=== PATIENT | male | born 1965 | race Caucasian/White ===

== ENCOUNTER 2017-06-13 16:56 | Emergency (ER) | payer BC ==
[~2017-06-13] VITALS: Ht 180.3 cm; Wt 96.9 kg
[~2017-06-13 16:56] MED LIST changes: -FLM4 PO; -LSN40 PO; -TRIM100T20 PO; -VITBC PO; -XRL10 PO
[2017-06-13 17:05] VITALS: TEMP 36.8
--- NOTE | 2017-06-13 17:18 | EMERGENCY ROOM VISIT NOTE ---
History Report prepared by Rachel: Kush Medina Under the Supervision of: Dr. Liborio Rosas M.D. First contact with patient: 17:09 Chief Complaint: ABNORMAL DIAGNOSTIC TESTING Stated Complaint: ABNORMAL ULTRASOUND, DVT IN LEFT LEG History of Present Illness The patient is a 52 year old male who presents to the Emergency Room with complaints of persistent lower left leg pain that started a week ago. He says that he had 4 surgeries 10 years ago for a torn Achilles, and ever since has had this lump on his left lower leg. However, last week, the patient states that he started having soreness around the area with increased swelling. He saw his primary care physician, and was sent to have an ultrasound, which was abnormal and revealed a DVT. The patient was then sent here for further evaluation and treatment. The patient says that he is generally healthy, and works out daily. He denies any chest pain, shortness of breath, or abdominal pain. Source of History: patient Onset: A week ago Position: leg (left) Timing: other (persistent) Associated Symptoms: No chest pain, No SOB, No abdominal pain Note: Associated symptoms: Left lower leg swelling. Abnormal ultrasound. Review of Systems See HPI for pertinent positives & negatives. A total of 10 systems reviewed and were otherwise negative. Past Medical & Surgical Medical Problems: (1) Acid reflux (2) Enlarged prostate (3) HTN (hypertension) Surgical Problems: (1) Achilles rupture Family History Cancer Diabetes mellitus Heart disease Hypertension Social History Smoking Status: Former Smoker Smokeless Tobacco Use: No Alcohol Use: occasionally Marital Status: Housing Status: lives with family Occupation Status: employed Current/Historical Medications Scheduled [place]-3 Fatty Acids (Fish Oil), 1 CAP PO QAM Pantoprazole Sodium (Protonix), 40 MG PO QAM Rivaroxaban (Xarelto), 15 MG PO BID Allergies Coded Allergies: No Known Allergies (Unverified , 08/15/15) Physical Exam Vital Signs Date Time Temp Pulse Resp B/P (MAP) Pulse Ox O2 Delivery O2 Flow Rate FiO2 06/13/17 17:37 97 Room Air 06/13/17 17:05 36.8 70 18 166/102 100 Physical Exam GENERAL: Patient is a healthy-appearing well-nourished 52 year old male HEAD: Normocephalic atraumatic EYES: Ocular movements intact pupils equal and react to light OROPHARYNX mucous membranes are moist no exudates present no erythema or edema present NECK: Supple no nuchal rigidity CHEST: Good equal expansion LUNGS: Clear and equal to auscultation CARDIAC: Normal S1 and S2 ABDOMEN: Soft nontender no guarding BACK: No CVA tenderness EXTREMITIES: Superficial phlebitis to medial side of left leg, and left calf is swollen. NEURO: Patient is following commands and answering questions appropriately. Alert and oriented x3 Cranial Nerves 2-12 grossly intact Medical Decision & Procedures Laboratory Results Test 06/13/17 17:09 Labs reviewed by ED physician. ED Course 1712: Past medical records reviewed. The patient was evaluated in room C11B. A complete history and physical examination was performed. 1735: Upon reexamination the patient is resting comfortably. I discussed results and treatment plan with the patient. he verbalizes agreement and understanding. The patient is ready for discharge. 1745: Ordered Xarelto Tab 15 mg PO. Medical Decision Differential diagnosis: Etiologies such as DVT, musculoskeletal, infection, joint effusion, trauma, lymphedema, idiopathic, CHF, as well as others were entertained.. Medication Reconcilliation Current Medication List: was personally reviewed by me Blood Pressure Screening Patient's blood pressure: Elevated blood pressure Blood pressure disposition: Referred to PCP Impression Primary Impression: DVT (deep venous thrombosis) Scribe Attestation The scribe's documentation has been prepared under my direction and personally reviewed by me in its entirety. I confirm that the note above accurately reflects all work, treatment, procedures, and medical decision making performed by me. Departure Information Dispostion Home / Self-Care Prescriptions Rivaroxaban (Xarelto) 10 Mg Tab 15 MG PO BID for 21 Days, #63 TAB Prov: Liborio Rosas MD 06/13/17 Referrals Jeremy Bran M.D. (PCP) Patient Instructions DVT Dc, Hypertension Dc, My [facility], Rivaroxaban oral tablets Additional Instructions Follow up with Dr Bran's office within one week You were found to have an elevated blood pressure today (>120 sytolic or >90 diastolic). Per medicare guidelines, you need to follow up with this blood pressure screening with your Primary Care Physician (PCP). For a new PCP call [phone]. You have been examined and treated today on an emergency basis only. This is not a substitute for, or an effort to provide, complete comprehensive medical care. It is impossible to recognize and treat all injuries or illnesses in a single emergency department visit. It is therefore important that you follow up closely with Dr Bran. Call as soon as possible for an appointment. Thank you for your time and consideration. I look forward to speaking with you again soon. Please don't hesitate to call us if you have any questions. Problem Qualifiers Primary Impression: DVT (deep venous thrombosis) DVT location: lower extremity Affected thrombotic vein of extremity: unspecified vein of extremity Chronicity: acute Laterality: left Qualified Codes: I82.402 - Acute embolism and thrombosis of unspecified deep veins of left lower extremity
[2017-06-13] MEDS ORDERED: RIVAROXABAN 20 MG TAB PO STA (17:29)
[2017-06-13] MEDS ORDERED: XRL10 PO (17:33)
[2017-06-13 17:37] VITALS: O2SAT 97; Ht 180.3 cm; Wt 96.9 kg
[2017-06-13] MEDS ORDERED: TRIM100T20 PO (17:40)
[2017-06-13] MEDS ORDERED: LSN40 PO (17:40)
[2017-06-13] MEDS ORDERED: RIVAROXABAN TAB 15 MG TAB PO ONE (17:45)
[2017-06-13 17:49] LABS: BASO % 0.4 %; BASO ABS # 0.03 K/uL (0-0.2); COMPLETE YES; EOS % 1.1 %; LYMPH ABS # 1.73 K/uL (1.2-3.4); MEAN CELL VOLUME 88.5 fL (80-100); MEAN CORPUSCULAR HEMOGLOBIN 30.3 pg (25-34); MEAN CORPUSCULAR HGB CONC 34.3 g/dl (32-36); MEAN PLATELET VOLUME 9.6 fL (7.4-10.4); MONO % 11.5 %; PLATELET COUNT 236 K/uL (130-400); RED BLOOD COUNT 4.52 M/uL (4.7-6.1); WHITE BLOOD COUNT 7.88 K/uL (4.8-10.8)
[2017-06-13 18:03] LABS: PARTIAL THROMBOPLASTIN RATIO 0.9; PROTHROMBIN TIME (PATIENT) 10.5 SECONDS (9.0-12.0)
[2017-06-13 18:07] LABS: BUN/CREATININE RATIO 14.1 (10-20); CREATININE 1.3 mg/dl (0.60-1.40); POTASSIUM 3.7 mmol/L (3.5-5.1)
[2017-06-13 18:10] LABS: ALB/GLOB RATIO 1.1 (0.9-2)
[2017-06-13 18:15] VITALS: BP 139/94; PULSE 68; O2SAT 98
[2017-06-24 12:52] LABS: ANTITHROMBINIII ACTIVITY** 103 % activity (80-120); B2 GLYCOPROTEIN IGA <9 SAU (<=20); B2 GLYCOPROTEIN IGG <9 SGU (<=20); B2 GLYCOPROTEIN IGM <9 SMU (<=20); LUPUS ANTICOAGULANT** TC36573X Negative (Negative); PROTEIN C ACTIVITY** TC 1777X 113 % (70-180)
== END 2017-06-13 18:21 | disposition home or self-care (01) ==
LOC: C.EDB 16:58 → C.EDC 18:21
DX: I82.4Z2 Acute embolism and thrombosis of unspecified deep veins of left distal lower extremity (principal); K21.9 Gastro-esophageal reflux disease without esophagitis; N40.0 Benign prostatic hyperplasia without lower urinary tract symptoms; I10 Essential (primary) hypertension; Z87.891 Personal history of nicotine dependence; Z83.3 Family history of diabetes mellitus; Z82.49 Family history of ischemic heart disease and other diseases of the circulatory system

== ENCOUNTER → 2017-06-13 | Outpatient (CLI) | payer BC ==
[~2017-06-13] MED LIST: FLM4 PO; LSN40 PO; OMEGCAP2 PO; PANT40TA PO; TRIM100T20 PO; VITBC PO; XRL10 PO
--- NOTE | 2017-06-13 16:18 | DIAGNOSTIC IMAGING REPORT ---
ADDENDUM All references to the right leg on the original report refers exclusively to the left leg. Electronically signed by: Ronnie Vazquez M.D. 06/23/2017 9:55 AM Dictated Date/Time: 06/23/2017 9:55 AM ORIGINAL REPORT LEFT VENOUS DOPP LOWER EXT UNILAT CLINICAL HISTORY: PAIN AND SWELLING IN LEFT LEG; R/O DVT *STAT pain. Edema. TECHNIQUE: Venous Doppler COMPARISON STUDY: None FINDINGS: Study is positive for deep venous thrombosis involving the posterior tibial vein in the right. All remaining venous structures the right leg are unremarkable. There is a superficial thrombus within a superficial vessel medial left calf. The deep venous structures left leg are unremarkable. IMPRESSION: 1. Focal deep venous thrombosis right posterior tibial vein inferior to the knee 2. Focal superficial thrombophlebitis left calf The above report was generated using voice recognition software. It may contain grammatical, syntax or spelling errors. Electronically signed by: Ronnie Vazquez M.D. 06/13/2017 4:17 PM Dictated Date/Time: 06/13/2017 4:16 PM
== END | disposition home or self-care (01) ==
LOC: C.ULTR 15:17
PROVIDERS: ATTEND Student in an Organized Health Care Education/Training Program
DX: M79.89 Other specified soft tissue disorders (principal); I82.442 Acute embolism and thrombosis of left tibial vein; I80.02 Phlebitis and thrombophlebitis of superficial vessels of left lower extremity

== ENCOUNTER → 2017-06-22 | Outpatient (CLI) | payer BC ==
[~2017-06-22] MED LIST changes: +FLM4 PO; +LSN40 PO; -OMEGCAP2 PO; +TRIM100T20 PO; +VITBC PO; +XRL10 PO
--- NOTE | 2017-06-22 09:27 | DIAGNOSTIC IMAGING REPORT ---
LEFT TIBIA/FIBULA 2 VIEWS ROUTINE CLINICAL HISTORY: Lower leg mass COMPARISON: None. DISCUSSION: No fractures or dislocations are visualized. There are no erosive or destructive changes. There is nonspecific focal soft tissue nodularity located medially at the junction of the middle distal one third of the lower leg. IMPRESSION: 1. No bony abnormalities identified 2. Nonspecific soft tissue nodularity involving the medial soft tissues. Electronically signed by: Jorge Shelley M.D. 06/22/2017 9:26 AM Dictated Date/Time: 06/22/2017 9:25 AM
== END | disposition home or self-care (01) ==
LOC: C.RAD 09:04
PROVIDERS: ATTEND Family Medicine
DX: R22.40 Localized swelling, mass and lump, unspecified lower limb (principal)

== ENCOUNTER 2017-07-01 18:32 | Emergency (ER) | payer BC ==
[~2017-07-01] VITALS: Ht 180.3 cm; Wt 98.4 kg
[~2017-07-01 18:32] MED LIST changes: -FLM4 PO; -VITBC PO
[2017-07-01 18:37] VITALS: TEMP 36.6; Ht 180.3 cm; Wt 98.4 kg
[2017-07-01 18:57] VITALS: O2SAT 97
[2017-07-01] MEDS ORDERED: RIVAROXABAN TAB 15 MG TAB PO STA (19:04)
[2017-07-01 19:12] LABS: BASO % 0.3 %; BASO ABS # 0.02 K/uL (0-0.2); COMPLETE YES; EOS % 1.6 %; HEMATOCRIT 39.3 % (42-52); IG% 0.3 %; LYMPH % 28.9 %; LYMPH ABS # 2.01 K/uL (1.2-3.4); MEAN CELL VOLUME 88.5 fL (80-100); MEAN CORPUSCULAR HEMOGLOBIN 29.7 pg (25-34); MEAN CORPUSCULAR HGB CONC 33.6 g/dl (32-36); MEAN PLATELET VOLUME 9.3 fL (7.4-10.4); MONO % 11.9 %; PLATELET COUNT 221 K/uL (130-400); RED BLOOD COUNT 4.44 M/uL (4.7-6.1); WHITE BLOOD COUNT 6.96 K/uL (4.8-10.8)
[2017-07-01 19:22] LABS: PROTHROMBIN TIME (PATIENT) 10.7 SECONDS (9.0-12.0)
--- NOTE | 2017-07-01 19:48 | DIAGNOSTIC IMAGING REPORT ---
CHEST ONE VIEW PORTABLE CLINICAL HISTORY: 52 years-old Male presenting with chest pressure. TECHNIQUE: Portable upright AP view of the chest was obtained. COMPARISON: 12/09/2009. FINDINGS: Cardiac silhouette mildly enlarged. Double density posterior to the right heart border may suggest left atrial enlargement. Mild prominence of pulmonary vasculature. Lungs and pleural spaces clear. Osseous structures normal. Upper abdomen normal. IMPRESSION: 1. Allowing for portable technique, apparent interval development of mild cardiomegaly with possible left atrial enlargement and pulmonary vascular prominence. No evidence of pulmonary edema or focal infiltrate. Electronically signed by: Marcos Ruiz M.D. 07/01/2017 7:46 PM Dictated Date/Time: 07/01/2017 7:44 PM
[2017-07-01] MEDS ORDERED: FLM4 PO (20:07)
[2017-07-01 20:08] LABS: LYME DISEASE AB IGG NEG (NEG); LYME DISEASE AB IGM NEG (NEG)
[2017-07-01] MEDS ORDERED: VITBC PO (20:08)
[2017-07-01 20:24] LABS: MANUAL MICROSCOPIC REQUIRED? NO; REVIEW REQ? NO; URINE APPEARANCE CLEAR (CLEAR); URINE BILIRUBIN NEG (NEG); URINE COLOR YELLOW; URINE NITRITE NEG (NEG); URINE SPECIFIC GRAVITY 1.025 (1.000-1.030); UROBILINOGEN NEG (NEG); ZZUR CULT IF INDIC CLEAN CATCH NO
[2017-07-01 20:45] LABS: BUN/CREATININE RATIO 10.9 (10-20); CALCIUM 8.9 mg/dl (8.5-10.1); CREATININE 1.2 mg/dl (0.60-1.40); MAGNESIUM 2.1 mg/dl (1.8-2.4); POTASSIUM 3.7 mmol/L (3.5-5.1)
[2017-07-01 20:56] LABS: ALB/GLOB RATIO 1.1 (0.9-2); THYROID STIMULATING HORMONE 2.12 uIu/ml (0.300-4.500)
[2017-07-01] MEDS ORDERED: OPTIRAY 320 IV PRN (21:15)
--- NOTE | 2017-07-01 22:02 | DIAGNOSTIC IMAGING REPORT ---
(CHEST FOR PE) ANGIO WITH CT DOSE: 523.34 mGy.cm HISTORY: 52 years-old Male presents with acute chest pain. TECHNIQUE: Multiple CTA images of the chest were obtained after the intravenous administration of 93 ml Optiray 320. Coronal and sagittal MIPS were obtained from the axial data set and were submitted for review. A dose lowering technique was utilized adhering to the principles of ALARA. COMPARISON: Portable chest radiograph 07/01/2017. FINDINGS: CTA: There is adequate opacification of the pulmonary arteries to the level of the subsegmental branches without convincing evidence of acute pulmonary embolism. Thoracic aorta is not opacified secondary to contrast bolus timing, however appears to be within normal limits.Heart size is normal. Coronary arterial calcifications are noted. There is reflux of contrast into the hepatic veins, likely secondary to technique. CT CHEST: No dominant thyroid nodule is seen. No pathologically adenopathy by CT size criteria. Subsegmental dependent atelectasis is present within the bilateral lungs. No pneumothorax, pleural effusion or focal airspace consolidation. Mild mosaic attenuation suggests some air trapping. Central airways are patent. Imaged upper abdominal structures are within normal limits. Transverse colon diverticula are noted. Degenerative changes are seen throughout the spine, [id number]. IMPRESSION: No acute cardiopulmonary process, specifically no evidence of pulmonary thromboembolic disease. Thoracic aorta is not well opacified, however also demonstrates no acute disease. The above report was generated using voice recognition software. It may contain grammatical, syntax or spelling errors. Electronically signed by: Maco Chand M.D. 07/01/2017 10:00 PM Dictated Date/Time: 07/01/2017 9:56 PM
[2017-07-01] MEDS ORDERED: GI COCKTAIL PO STA (22:15)
[2017-07-01] MEDS ORDERED: ALUMINUM/MAGNESIUM SUSP 30 ML UDC ONE (22:20)
[2017-07-01] MEDS ORDERED: LIDOCAINE HCL 2% VISC SOLN 20 ML UDC ONE (22:21)
--- NOTE | 2017-07-01 22:49 | EMERGENCY ROOM VISIT NOTE ---
History First contact with patient: 18:40 Chief Complaint: CHEST PAIN Stated Complaint: HAS BLOOD CLOT, NEW CHEST TIGHNESS Nursing Triage Summary: Pt reports substernal chest tightness that started today. Pt states "I looked it up on the computer and because of my DVT, I am concerned about a blood clot in my lungs". Dx with DVT recently. Currently on Xaralto. Denies SOB. History of Present Illness The patient is a 52 year old male who presents to the Emergency Room via private vehicle accompanied by With complaints of "has blood clots, new chest tightness". The patient states that today he went to work around 5:30 AM, and unfortunately missed his morning dose of Xarelto. He may have also missed one other dose throughout his course since his DVT diagnosis earlier in the month. The patient states that around 7 8 AM he developed substernal chest pressure/heaviness. He states the heaviness is constant. He has not taken anything for the symptoms. He denies any significant past medical history, but admits to hypertension, as well as borderline high cholesterol. He states that the DVT diagnosis was June 13 in the left leg. He has been taking Xarelto 15 mg twice a day for this. He denies any nausea, vomiting, diarrhea, constipation, shortness of breath, radiation of symptoms to left arm, jaw, back, chest pain, numbness or tinging, headache, weakness, fatigue, fevers, chills, night sweats. He states that he has a family history of heart issues. Review of Systems A complete 10-point Review of Systems was discussed with the patient, with pertinent positives and negatives listed in the History of Present Illness. All remaining Review of Systems questions can be considered negative unless otherwise specified. Past Medical/Surgical History Medical Problems: (1) Acid reflux (2) Enlarged prostate (3) HTN (hypertension) Surgical Problems: (1) Achilles rupture Family History Cancer Diabetes mellitus Heart disease Hypertension Social History Smoking Status: Never Smoker Alcohol Use: occasionally Marital Status: Housing Status: lives with family Occupation Status: employed Current/Historical Medications Scheduled Lisinopril (Lisinopril), 40 MG PO DAILY Pantoprazole Sodium (Protonix), 40 MG PO QAM Rivaroxaban (Xarelto), 15 MG PO BID Tamsulosin HCl (Tamsulosin HCl), 0.4 MG PO QPM Vitamin B Complex (Vitamin B Complex), 1 TAB PO DAILY Physical Exam Vital Signs Date Time Temp Pulse Resp B/P (MAP) Pulse Ox O2 Delivery O2 Flow Rate FiO2 07/01/17 22:58 63 14 141/96 95 07/01/17 22:38 07/01/17 22:25 69 16 150/99 95 Room Air 07/01/17 21:31 152/104 07/01/17 21:07 65 17 98 07/01/17 21:01 145/103 07/01/17 20:37 58 20 96 07/01/17 20:31 142/94 07/01/17 20:07 61 14 97 07/01/17 20:02 153/95 07/01/17 19:35 63 18 96 07/01/17 19:32 60 18 129/94 95 Room Air 07/01/17 19:13 59 07/01/17 18:57 97 Room Air 07/01/17 18:47 98 Room Air 07/01/17 18:37 36.6 59 18 188/115 98 Room Air Physical Exam VITAL SIGNS - Vital signs and nursing notes were reviewed. Afebrile, hypertensive at 188/115, non-tachycardic and saturating well on room air 90%. GENERAL -52-year-old male appearing his stated age who is in no acute distress. Communicates well with provider and answers questions appropriately. SKIN - Without rashes. No petechial rashes. HEAD - NC/AT. EYES - Sclera anicteric. EARS - No deformities of external structures noted on gross examination bilaterally. NOSE - Midline and without cyanosis. No epistaxis or purulent drainage noted. MOUTH/OROPHARYNX - Without perioral cyanosis. Buccal mucosa pink and moist and without leukoplakia. NECK - Neck with FROM. LUNGS - Chest wall symmetric without accessory muscle use, intercostals retractions, or central cyanosis. Normal vesicular breath sounds CTA B/L. No wheezes, rales, or rhonchi appreciated. CARDIAC - RRR with S1/S2. No murmur, rubs, or gallops appreciated. ABDOMEN - Abdominal contour without pulsations or visible masses. BS normoactive all four quadrants. No tenderness, palpable masses, hepatosplenomegaly, or ascites noted. EXTREMITIES - No clubbing or peripheral cyanosis. No pretibial edema present. +5 /5 strength noted in UE/LE bilaterally. NEUROLOGIC - Cranial nerves II through XII grossly intact. Sensory intact to light touch throughout. PSYCH - A&O. Pt is very pleasant and interacts well with examiner. Medical Decision & Procedures ER Provider Diagnostic Interpretation: CHEST ONE VIEW PORTABLE CLINICAL HISTORY: 52 years-old Male presenting with chest pressure. TECHNIQUE: Portable upright AP view of the chest was obtained. COMPARISON: 12/09/2009. FINDINGS: Cardiac silhouette mildly enlarged. Double density posterior to the right heart border may suggest left atrial enlargement. Mild prominence of pulmonary vasculature. Lungs and pleural spaces clear. Osseous structures normal. Upper abdomen normal. IMPRESSION: 1. Allowing for portable technique, apparent interval development of mild cardiomegaly with possible left atrial enlargement and pulmonary vascular prominence. No evidence of pulmonary edema or focal infiltrate. Electronically signed by: Marcos Ruiz M.D. 07/01/2017 7:46 PM Dictated Date/Time: 07/01/2017 7:44 PM. (CHEST FOR PE) ANGIO WITH CT DOSE: 523.34 mGy.cm HISTORY: 52 years-old Male presents with acute chest pain. TECHNIQUE: Multiple CTA images of the chest were obtained after the intravenous administration of 93 ml Optiray 320. Coronal and sagittal MIPS were obtained from the axial data set and were submitted for review. A dose lowering technique was utilized adhering to the principles of ALARA. COMPARISON: Portable chest radiograph 07/01/2017. FINDINGS: CTA: There is adequate opacification of the pulmonary arteries to the level of the subsegmental branches without convincing evidence of acute pulmonary embolism. Thoracic aorta is not opacified secondary to contrast bolus timing, however appears to be within normal limits.Heart size is normal. Coronary arterial calcifications are noted. There is reflux of contrast into the hepatic veins, likely secondary to technique. CT CHEST: No dominant thyroid nodule is seen. No pathologically adenopathy by CT size criteria. Subsegmental dependent atelectasis is present within the bilateral lungs. No pneumothorax, pleural effusion or focal airspace consolidation. Mild mosaic attenuation suggests some air trapping. Central airways are patent. Imaged upper abdominal structures are within normal limits. Transverse colon diverticula are noted. Degenerative changes are seen throughout the spine, [id number]. IMPRESSION: No acute cardiopulmonary process, specifically no evidence of pulmonary thromboembolic disease. Thoracic aorta is not well opacified, however also demonstrates no acute disease. The above report was generated using voice recognition software. It may contain grammatical, syntax or spelling errors. Electronically signed by: Maco Chand M.D. 07/01/2017 10:00 PM Dictated Date/Time: 07/01/2017 9:56 PM Laboratory Results 07/01/17 18:50 Red Blood Count 4.44, Mean Corpuscular Volume 88.5, Mean Corpuscular Hemoglobin 29.7, Mean Corpuscular Hemoglobin Concent 33.6, Mean Platelet Volume 9.3, Neutrophils (%) (Auto) 57.0, Lymphocytes (%) (Auto) 28.9, Monocytes (%) (Auto) 11.9, Eosinophils (%) (Auto) 1.6, Basophils (%) (Auto) 0.3, Neutrophils # (Auto ) 3.97, Lymphocytes # (Auto) 2.01, Monocytes # (Auto) 0.83, Eosinophils # (Auto ) 0.11, Basophils # (Auto) 0.02 07/01/17 18:50 Test 07/01/17 18:50 07/01/17 20:00 07/01/17 21:19 White Blood Count 6.96 K/uL (4.8-10.8) Red Blood Count 4.44 M/uL (4.7-6.1) Hemoglobin 13.2 g/dL (14.0-18.0) Hematocrit 39.3 % (42-52) Mean Corpuscular Volume 88.5 fL (80-100) Mean Corpuscular Hemoglobin 29.7 pg (25-34) Mean Corpuscular Hemoglobin Concent 33.6 g/dl (32-36) Platelet Count 221 K/uL (130-400) Mean Platelet Volume 9.3 fL (7.4-10.4) Neutrophils (%) (Auto) 57.0 % Lymphocytes (%) (Auto) 28.9 % Monocytes (%) (Auto) 11.9 % Eosinophils (%) (Auto) 1.6 % Basophils (%) (Auto) 0.3 % Neutrophils # (Auto) 3.97 K/uL (1.4-6.5) Lymphocytes # (Auto) 2.01 K/uL (1.2-3.4) Monocytes # (Auto) 0.83 K/uL (0.11-0.59) Eosinophils # (Auto) 0.11 K/uL (0-0.5) Basophils # (Auto) 0.02 K/uL (0-0.2) RDW Standard Deviation 42.7 fL (36.4-46.3) RDW Coefficient of Variation 13.2 % (11.5-14.5) Immature Granulocyte % (Auto) 0.3 % Immature Granulocyte # (Auto) 0.02 K/uL (0.00-0.02) Prothrombin Time 10.7 SECONDS (9.0-12.0) Prothromb Time International Ratio 1.0 (0.9-1.1) Activated Partial Thromboplast Time 26.5 SECONDS (21.0-31.0) Partial Thromboplastin Ratio 1.0 Anion Gap 7.0 mmol/L (3-11) Est Creatinine Clear Calc Drug Dose 85.1 ml/min Estimated GFR () 79.5 Estimated GFR (Non- 68.6 BUN/Creatinine Ratio 10.9 (10-20) Calcium Level 8.9 mg/dl (8.5-10.1) Magnesium Level 2.1 mg/dl (1.8-2.4) Total Bilirubin 0.4 mg/dl (0.2-1) Aspartate Amino Transf (AST/SGOT) 25 U/L (15-37) Alanine Aminotransferase (ALT/SGPT) 28 U/L (12-78) Alkaline Phosphatase 122 U/L (45-117) Total Protein 7.4 gm/dl (6.4-8.2) Albumin 3.8 gm/dl (3.4-5.0) Globulin 3.6 gm/dl (2.5-4.0) Albumin/Globulin Ratio 1.1 (0.9-2) Thyroid Stimulating Hormone (TSH) 2.120 uIu/ml (0.300-4.500) Lyme Disease IgG Antibody NEG (NEG) Lyme Disease IgM Antibody NEG (NEG) Urine Color YELLOW Urine Appearance CLEAR (CLEAR) Urine pH 6.0 (4.5-7.5) Urine Specific [place] 1.025 (1.000-1.030) Urine Protein NEG (NEG) Urine Glucose (UA) NEG (NEG) Urine Ketones TRACE (NEG) Urine Occult Blood NEG (NEG) Urine Nitrite NEG (NEG) Urine Bilirubin NEG (NEG) Urine Urobilinogen NEG (NEG) Urine Leukocyte Esterase NEG (NEG) Bedside Troponin I < 0.030 ng/ml (0-0.045) Medications Administered Medications (Trade) Dose Ordered Sig/Wilmer Route Start Time Stop Time Status Last Admin Dose Admin Rivaroxaban (Xarelto Tab) 15 mg NOW STAT PO 07/01/17 19:04 07/01/17 19:05 DC 07/01/17 19:32 15 MG Al Hydroxide/Mg Hydroxide (Maalox Susp) 30 ml STK-MED ONCE .ROUTE 07/01/17 22:20 07/01/17 22:21 DC 07/01/17 22:23 15 ML Lidocaine HCl (Viscous Lidocaine 2% Soln) 20 ml STK-MED ONCE .ROUTE 07/01/17 22:21 07/01/17 22:22 DC 07/01/17 22:24 10 ML Medical Decision Patient was seen and evaluated as above. After obtaining a thorough history and physical examination IV access is initiated, and the above workup was performed. Stat bedside chest x-ray was obtained and was negative for acute process. Bedside EKG reveals sinus bradycardia, no CVA change when compared to previous EKG of 01/22/2012. No ectopy or ischemic change. Troponin was negative 2. Because the patient missed his morning dose of Xarelto today I will give him today's dose which will cover his morning, but will be his late evening dose. This will be 15 mg of Xarelto. This was after discussing the case with the pharmacist. His CBC reveals no leukocytosis, CBC does reveal hemoglobin of 13.2. Slight decreased compared to previous. Coags unremarkable. Metabolic panel reveals no emergent process. Creatinine is actually improved. TSH remarkable. Troponin negative 2. Urine reveals trace ketones. Negative Lyme test. Benefits versus risk of obtaining a CT scan of the patient's chest was discussed, and although it is very unlikely that he may have a PE given the Xarelto, because he missed was believed to be 2 doses of Xarelto throughout his course I will recommend a CT scan of the patient's chest. He was in agreement. Benefits versus risks was discussed. The skin does not reveal any pulmonary emboli. This was discussed with the patient. He was given a GI cocktail with near resolution of his symptoms. It is likely this is from GI causes, however his heart score is 4. I informed him that he would benefit from staying in the hospital for further evaluation and management as he is at a higher risk than some. After fully understanding the benefits versus risks, he respectfully declined admission, noting he would like to go home. I will gianna his wish. He was educated upon importance of follow- up. He is to follow-up with his family doctor. He was educated upon worrisome symptoms which to return, had questions for discharge, and was discharged home condition. He certainly is to follow up for the elevated blood pressure. In evaluation treatment this patient following differential diagnoses were entertained: [place], PE, GERD, among others. Impression Primary Impression: Chest pain Additional Impression: Anemia Departure Information Dispostion Home / Self-Care Condition GOOD Referrals Jeremy Bran M.D. (PCP) Patient Instructions My [facility] Additional Instructions You were seen in the emergency Department for chest pain. At this time as we discussed you did not have any evidence of a blood clot in the lungs. I do recommend that you continue Xarelto by taking your normal scheduled dose tomorrow and then continuing. Please follow-up with your doctor/family doctor regarding today's visit and for further evaluation of your chest pain. You have respectfully declined admission to the hospital, and certainly are invited to return back for any new/concerning symptoms. Please no strenuous activity until follow-up with your family doctor. Please return the emergency department with any new/concerning symptoms. Problem Qualifiers
[2017-07-01 22:58] VITALS: BP 141/96; PULSE 63; O2SAT 95
== END 2017-07-01 22:58 | disposition home or self-care (01) ==
LOC: C.EDB 18:33 → C.EDA 22:58
DX: R07.9 Chest pain, unspecified (principal); D64.9 Anemia, unspecified; Z79.01 Long term (current) use of anticoagulants; Z79.899 Other long term (current) drug therapy; Z86.718 Personal history of other venous thrombosis and embolism; I10 Essential (primary) hypertension; E78.00 Pure hypercholesterolemia, unspecified; K21.9 Gastro-esophageal reflux disease without esophagitis; N40.0 Benign prostatic hyperplasia without lower urinary tract symptoms; Z80.9 Family history of malignant neoplasm, unspecified; Z83.3 Family history of diabetes mellitus; Z82.49 Family history of ischemic heart disease and other diseases of the circulatory system

== ENCOUNTER → 2017-07-05 | Outpatient (CLI) | payer BC ==
[~2017-07-05] MED LIST changes: +FLM4 PO; -TRIM100T20 PO; +VITBC PO
[2017-07-05 09:56] LABS: BASO % 0.4 %; BASO ABS # 0.02 K/uL (0-0.2); COMPLETE YES; HEMATOCRIT 39.2 % (42-52); IG% 0.2 %; LYMPH % 19.5 %; LYMPH ABS # 1.02 K/uL (1.2-3.4); MEAN CELL VOLUME 86.3 fL (80-100); MEAN CORPUSCULAR HEMOGLOBIN 30.4 pg (25-34); MEAN CORPUSCULAR HGB CONC 35.2 g/dl (32-36); MEAN PLATELET VOLUME 9.7 fL (7.4-10.4); MONO % 11.1 %; NEUT % 67.8 %; PLATELET COUNT 219 K/uL (130-400); RED BLOOD COUNT 4.54 M/uL (4.7-6.1); WHITE BLOOD COUNT 5.22 K/uL (4.8-10.8)
[2017-07-05 10:25] LABS: ALKALINE PHOSPHATASE 115 U/L (45-117); ALT/SGPT 24 U/L (12-78); AST/SGOT 17 U/L (15-37); BLOOD UREA NITROGEN 14 mg/dl (7-18); BUN/CREATININE RATIO 11.4 (10-20); CALCIUM 9.1 mg/dl (8.5-10.1); CARBON DIOXIDE 28 mmol/L (21-32); CHLORIDE 109 mmol/L (98-107); GLUCOSE 97 mg/dl (70-99); POTASSIUM 3.8 mmol/L (3.5-5.1); SODIUM 143 mmol/L (136-145)
== END | disposition home or self-care (01) ==
LOC: C.LAB 08:36
PROVIDERS: ATTEND Internal Medicine Hematology & Oncology
DX: I82.409 Acute embolism and thrombosis of unspecified deep veins of unspecified lower extremity (principal); R97.20 Elevated prostate specific antigen [PSA]

== ENCOUNTER → 2017-09-12 | Outpatient (CLI) | payer BC ==
[~2017-09-12] MED LIST changes: -XRL10 PO
--- NOTE | 2017-09-12 11:59 | DIAGNOSTIC IMAGING REPORT ---
LEFT LOWER EXTREMITY VENOUS DOPPLER HISTORY: DVT LEFT LOWER LEG COMPARISON STUDY: Left leg venous Doppler 06/13/2017. FINDINGS: The left common femoral vein is patent. Nonocclusive peripheral echogenic thrombus within the left popliteal vein. This suggests chronic thrombus. Thrombosed superficial veins within the left posterior calf. There is also thrombosed left posterior tibial vein. This remains unchanged. IMPRESSION: 1. Nonocclusive peripheral echogenic thrombus within the left popliteal vein which likely represents chronic DVT given the appearance. 2. Thrombosed left posterior tibial vein, unchanged. Therefore, this is also likely chronic. 3. No change in the thrombosed superficial veins within the left posterior calf. Electronically signed by: Ritesh Sims M.D. 09/12/2017 11:58 AM Dictated Date/Time: 09/12/2017 11:55 AM
[2017-09-12 12:11] LABS: BASO % 0.5 %; BASO ABS # 0.04 K/uL (0-0.2); COMPLETE YES; EOS % 0.5 %; HEMATOCRIT 44.6 % (42-52); IG% 0.2 %; LYMPH % 18.1 %; LYMPH ABS # 1.52 K/uL (1.2-3.4); MEAN CELL VOLUME 87.5 fL (80-100); MEAN CORPUSCULAR HEMOGLOBIN 29.2 pg (25-34); MEAN CORPUSCULAR HGB CONC 33.4 g/dl (32-36); MEAN PLATELET VOLUME 9.6 fL (7.4-10.4); NEUT % 70.7 %; PLATELET COUNT 256 K/uL (130-400); WHITE BLOOD COUNT 8.38 K/uL (4.8-10.8)
[2017-09-12 12:39] LABS: ALT/SGPT 29 U/L (12-78); AST/SGOT 18 U/L (15-37); BLOOD UREA NITROGEN 20 mg/dl (7-18); BUN/CREATININE RATIO 16.9 (10-20); CALCIUM 8.9 mg/dl (8.5-10.1); CARBON DIOXIDE 29 mmol/L (21-32); CHLORIDE 109 mmol/L (98-107); GLUCOSE 73 mg/dl (70-99); SODIUM 143 mmol/L (136-145)
[2017-09-12 12:42] LABS: ALB/GLOB RATIO 1.1 (0.9-2); ALKALINE PHOSPHATASE 122 U/L (45-117)
== END | disposition home or self-care (01) ==
LOC: C.ULTR 11:08
PROVIDERS: ATTEND Internal Medicine Hematology & Oncology
DX: I82.432 Acute embolism and thrombosis of left popliteal vein (principal); I82.442 Acute embolism and thrombosis of left tibial vein

== ENCOUNTER → 2017-09-20 | Outpatient (CLI) | payer BC | END | disposition home or self-care (01) | LOC: C.LAB 14:27 | PROVIDERS: ATTEND Urology | DX: R97.20 Elevated prostate specific antigen [PSA] (principal) ==

== ENCOUNTER → 2017-10-17 | Outpatient (CLI) | payer BC ==
--- NOTE | 2017-10-17 18:53 | DIAGNOSTIC IMAGING REPORT ---
ULTRASOUND LEFT LOWER EXTREMITY VENOUS CLINICAL HISTORY: Follow-up deep venous thrombosis. COMPARISON STUDY: Left lower extremity venous ultrasound dated 09/12/2017. TECHNIQUE: Real-time, grayscale, and color Doppler sonography of the deep veins of the left lower extremity was performed from the inguinal crease to the calf. Compression and augmentation were utilized. FINDINGS: Nonocclusive the venous thrombosis is again seen within the popliteal vein and within a branch of the posterior tibial vein in the calf. This has not significant changed 09/12/2017. The remaining calf vessels appear patent. The common femoral and superficial femoral veins are patent and normally compressible. The greater saphenous vein and the profunda femoris vein at the junction with the common femoral vein are clear. IMPRESSION: 1. Unchanged appearance of nonocclusive deep venous thrombosis in the left popliteal vein which extends into the calf as compared to 09/12/2017. This is age indeterminant and likely chronic. 2. The remaining deep veins of the left lower extremity are clear. Electronically signed by: Brandon Aly M.D. 10/17/2017 6:52 PM Dictated Date/Time: 10/17/2017 6:50 PM
== END | disposition home or self-care (01) ==
LOC: C.ULTR 18:05
PROVIDERS: ATTEND Internal Medicine Hematology & Oncology
DX: I82.402 Acute embolism and thrombosis of unspecified deep veins of left lower extremity (principal)

== ENCOUNTER → 2017-11-15 | Outpatient (CLI) | payer BC ==
[2017-11-15 09:49] LABS: BLOOD UREA NITROGEN 13 mg/dl (7-18); CALCIUM 8.9 mg/dl (8.5-10.1); CARBON DIOXIDE 30 mmol/L (21-32); CREATININE 1.04 mg/dl (0.60-1.40); GLUCOSE 111 mg/dl (70-99); POTASSIUM 4.2 mmol/L (3.5-5.1); SODIUM 141 mmol/L (136-145)
[2017-11-15 09:58] LABS: CHOLESTEROL 209 mg/dl (0-200); LDL CHOLESTEROL CALCULATED 136 mg/dl
== END | disposition home or self-care (01) ==
LOC: C.LAB 08:28
PROVIDERS: ATTEND Family Medicine
DX: Z13.220 Encounter for screening for lipoid disorders (principal); I10 Essential (primary) hypertension; Z11.59 Encounter for screening for other viral diseases

== ENCOUNTER → 2018-01-17 | Outpatient (CLI) | payer BC | END | disposition home or self-care (01) | LOC: C.PATHSPEC 18:13 | PROVIDERS: ATTEND Urology | DX: R97.20 Elevated prostate specific antigen [PSA] (principal) ==

== ENCOUNTER 2020-07-24 07:02 | Observation (INO) ==
--- NOTE | 2020-07-01 13:35 | PAT Medication Instructions ---
Medication Instructions Date of Service July 01, 2020 Home Medications losartan 100 mg PO QAM turmeric 400 mg PO QAM STOP taking 2 weeks before surgery (or as soon as possible if surgery is within 2 weeks) turmeric 400 mg PO QAM DO NOT take the morning of surgery losartan 100 mg PO QAM Other Notes If you have any questions please call us at [phone] or [phone] or [phone] or [phone]
--- NOTE | 2020-07-02 09:17 | Anesthesiology Consultation ---
Date of Service July 02, 2020 Assessment & Plan (1) Encounter for pre-operative examination: *Per PAT assessment on 07/02: Travel screen negative x 2 weeks. Patient did travel to [place] for work (06/18 for day trip). Uses PPE. No known COVID-19 positive contacts. No current COVID-19 related symptoms. Surgeon arranging preop COVID testing. Awaiting results. Chart Review Chart Review: Acceptable Risk for Surgery (pending surgeon-ordered PCP clearance scheduled 07/03 (Dr. Bran)) and Patient seen in Pre Admission Testing Teaching & Discussion Pre-Anesthesia Teaching/Discussion Notes: Instructed NPO after midnight before surgery,except medications with 15 cc of water. Medication instructions provided according to the PAT guidelines. History Surgery Operation Date: 07/24/20 09:20 Proposed Procedures p Right Total Hip Arthroplasty - Marcos David MD Height/Weight Height: 5 ft 11 in Weight: 98.7 kg Allergies Allergy/AdvReac Type Severity Reaction Status Date / Time No Known Allergies Allergy Verified 06/24/20 08:28 Medications Home Medications Medication Instructions Recorded Confirmed Last Taken losartan 100 mg PO QAM 06/24/20 06/24/20 Unknown turmeric 400 mg PO QAM 06/24/20 06/24/20 Unknown Past Medical History Medical History Acid reflux diet controlled BPH (benign prostatic hyperplasia) History of DVT (deep vein thrombosis) 3 years ago -- LLE following travel - treated with AC x 3 mo HTN (hypertension) Obesity Osteoarthritis Exercise / Class Metabolic Activity II 4-5 Yardwork/Stairs/Walk up hill Past Family History Family History Aunt Colorectal cancer Father Diabetes Lung cancer Other No family history of adverse response to anesthesia Past Surgical History Surgical History H/O Achilles tendon repair x 4 H/O elbow surgery Rt x 4 H/O shoulder surgery Rt History of colonoscopy History of esophagogastroduodenoscopy (EGD) History of transurethral resection of prostate Past Anesthesia History No Hx of Anesthesia Complications and No Family Hx of Anesthesia Complications History of PONV No Hx of PONV and No Hx of Motion Sickness Social History Smoking Status: Never smoker Do You Dip or Chew Tobacco: No Hx Alcohol Use: Yes Alcohol type: beer, wine and hard liquor alcohol intake frequency: a few times a week Hx Substance Use: No substance use type: does not use Review of Systems Patient denies chest pain, shortness of breath, dyspnea on exertion, fever, chlls, cough, wheezing, palpitations. Physical Exam Vital Signs VITALS BP 148/90 P 78 TEMP 98.4 SP02 98%RA RESP 16 PHYSICAL Full neck and c-spine range of motion. Full TMJ range of motion. TMD 3.5 finger breaths Mallampati Score 2 Dentition: intact, +several crowns, *patient had recent root canal done right lower molar on abscessed tooth (surgeon office aware per patient)* Lungs: clear throughout to auscultation Cardiac: regular rate and rhythm, no murmurs noted Spine: normal Carotid arteries: negative bruit Extremities: no edema Testing Laboratory Results 07/02/20 09:44 07/02/20 09:44 PT 10.6 Seconds (9.0-12.0) 07/02/20 09:44 INR 1.0 (0.9-1.1) 07/02/20 09:44 Hemoglobin A1c 5.6 % (4.5-5.6) 07/02/20 09:44 Urine Color Yellow 07/02/20 09:44 Urine Appearance Clear (Clear) 07/02/20 09:44 Urine pH 6.0 (4.5-7.5) 07/02/20 09:44 Ur Specific [place] 1.028 (1.000-1.030) 07/02/20 09:44 Urine Protein Negative (Negative) 07/02/20 09:44 Urine Glucose (UA) Negative (Negative) 07/02/20 09:44 Urine Ketones Trace (Negative) H 07/02/20 09:44 Urine Nitrite Negative (Negative) 07/02/20 09:44 Ur Leukocyte Esterase Negative (Negative) 07/02/20 09:44 Blood Type B Positive 07/02/20 09:44 Antibody Screen NEGATIVE 07/02/20 09:44 Electrocardiogram Date: 07/02/20 Findings: + NSR @ (91)
[2020-07-02 10:15] LABS: Appearance Urine Clear (Clear); Bilirubin Urine Negative (Negative); Blood Urine Negative (Negative); Color Urine Yellow; Glucose Urine UA Negative (Negative); Ketones Urine Trace (Negative); Leukocyte Esterase Urine Negative (Negative); Nitrite Urine Negative (Negative); Protein Urine Negative (Negative); Specific Gravity Urine 1.028 (1.000-1.030); Urobilinogen Urine Negative (Negative)
[2020-07-02 10:17] LABS: Basophils # (auto) 0.02 K/uL (0-0.2); Basophils % (auto) 0.3 %; Eosinophils # (auto) 0.06 K/uL (0-0.5); Eosinophils % (auto) 0.8 %; Hematocrit (blood only) 41.8 % (42-52); Immature Granulocytes # (auto) 0.02 K/uL (0.00-0.02); Immature Granulocytes % (auto) 0.3 %; Lymphocytes # (auto) 1.05 K/uL (1.2-3.4); Lymphocytes % (auto) 13.2 %; Mean Corpuscular Hemoglobin 29.6 pg (25-34); Mean Corpuscular Hgb Conc 33.5 g/dL (32-36); Mean Corpuscular Volume 88.4 fL (80-100); Mean Platelet Volume 9.7 fL (7.4-10.4); Monocytes # (auto) 0.98 K/uL (0.11-0.59); Monocytes % (auto) 12.3 %; Neutrophils # (auto) 5.81 K/uL (1.4-6.5); Neutrophils % (auto) 73.1 %; Platelet Count 238 K/uL (130-400); RDW Coefficient of Variation 13.7 % (11.5-14.5); RDW Standard Deviation 44.5 fL (36.4-46.3); Red Blood Count 4.73 M/uL (4.7-6.1); White Blood Count 7.94 K/uL (4.8-10.8)
[2020-07-02 10:27] LABS: Prothrombin Time 10.6 Seconds (9.0-12.0)
[2020-07-02 10:39] LABS: Estimated Average Glucose 114 mg/dl; Hemoglobin A1C 5.6 % (4.5-5.6)
[2020-07-02 11:59] LABS: BUN Creatinine Ratio 15.8 (10-20); Calcium 9.1 mg/dl (8.5-10.1); Creatinine Clr Calc Pharmacy 85.9 ml/min; Est GFR (Non-African American) 70.7; Potassium 3.9 mmol/L (3.5-5.1)
--- NOTE | 2020-07-02 12:00 | Electrocardiogram Report ---
Test Reason : Blood Pressure : / mmHG Vent. Rate : 066 BPM Atrial Rate : 066 BPM P-R Int : 186 ms QRS Dur : 086 ms QT Int : 416 ms P-R-T Axes : 061 058 047 degrees QTc Int : 436 ms Normal sinus rhythm Normal ECG When compared with ECG of 01-JUL-2017 18:38, No significant change was found Confirmed by Jonathon Baxter ([id number]) on 07/02/2020 12:00:06 PM Referred By: Marcos David Confirmed By:Jonathon Baxter
--- NOTE | 2020-07-03 08:36 | History & Physical Report ---
Date of Service July 03, 2020 Assessment & Plan (1) Osteoarthritis of right hip: PRE-OP Diagnosis: Right hip osteoarthritis Planned Procedure: Right total hip arthroplasty Plan: Patient is scheduled to undergo this procedure with Dr. Marcos David at the [facility] on July 24, 2020. Risks and complications of the procedure such as: Infection, bleeding, pain, scarring, nerve blood vessel damage, weakness, wound problems, stiffness, incomplete relief of symptom s, hardware failure, hardware loosening, wear, fracture, tendon or ligament injury, dislocation, leg length inequality, blood clots, embolism, heart attack, stroke and were explained to the patient at his visit today by Dr. David. Informed consent to perform the procedure was obtained. Patient also understands risks of proceeding with surgical intervention during the COVID-19 pandemic. Currently he is asymptomatic and understands he will be tested prior to his surgery. We will obtain preoperative medical clearance from the patient's primary care provider Dr. Bran. He has his appointment with tomorrow. Patient will proceed to the hospital for his preanesthesia clearance following his appointment this morning, and at that appointment he will obtain a CBC with differential, complete metabolic panel, PT/INR, blood type and screen, EKG, hemoglobin A1c, nasal culture for MRSA, urinalysis and urine culture with sensitivity. During today's visit we discussed discharge planning, total hip precautions, antibiotic use following total joint replacement surgery, purchasing a hip kit, obtaining a walker and raised toilet seats, lectures offered by [facility] via Zoom in regards to joint replacement surgery and physical therapy following surgery. We also discussed the medications the patient will be discharged with, and I advised him that he will be on Xarelto due to his previous history of blood clots. Patient was scheduled for his postoperative follow-up visit with myself on August 06 at 11:15 AM. Patient verbalized understanding of all information provided during today's visit, thanks for the care he has received, and states if he has questions or concerns should arise prior to his surgery date, he will contact clinic. History of Present Illness Chief Complaint: Chief Complaint: Right hip pain Primary Care Provider: Jeremy Bran History of Present Illness (including history relevant to procedure): This 55-year-old male presents the clinic today for his preoperative history and physical. 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 Patient has failed conservative management with steroid injections, the use of nonsteroidal agents physical therapy and his normal workout regimen has been affected. Patient states that he always has some pain in the hip. He has difficulty putting on his socks and taking pants on and off. He is had to give up jogging and has had progression on his normal workout regimen. He is able to do the elliptical for short periods of time. He has difficulty sleeping at night particularly if he tries to lie on the right side. Feels the pain in the groin and the lateral aspect of the hip. No numbness or tingling. Past Medical History: Problems: Preop testing Low back pain Impaired fasting glucose Osteoarthritis of right hip Hip pain, right Elevated PSA Chronic prostatitis ITB syndrome Hip pain, right Snores Weight disorder GERD (gastroesophageal reflux disease) ROSACEA History of viral warts Sebaceous hyperplasia Hyperplasia of Prostate, Unspecified, without Urinary Obstruction and Other Lower Urinary Symptoms (Luts) Elevated Blood Pressure Reading without Diagnosis of Hypertension Backache, Unspecified Procedure History Procedure Procedure Date Comments knee; Venous doppler ultrasonography 04/10/2018 - No evidence of acute occlusive deep venous thrombus. Nonocclusive echogenic thrombus of the mid femoral vein with extension into the popliteal vein suggests chronic etiology. - Uchanged appearance of nonocclusive deep venous thrombosis in the left popliteal vein which extends into the calf as compared to 09-12-17, this is age determinant and likely chronic. Remaining deep veins of the left lower extremity are clear. X-ray of tibia/fibula normal 06/22/2017 - 1. No bony abnormalities identified2. Nonspecific soft tissue nodularity involving the medial soft tissues. Colonoscopy 08/15/2015 - Repeat 10 years - Heri Summers, Niru small mouthed diverticula were found in the sigmoid colon. Non bleeding internal hemorrhoids were found during retrofleion. The hemorrhoids were small. Esophagogastrectomy 01/05/2011 Allergies and Sensitivities: NKA Current Home Meds: (Last Updated 07/02 08:01) (losartan 100 mg oral tablet) TAKE 1 TABLET BY MOUTH ONCE DAILY Initial Wt: 07/02 99.0 kg 218 lb Allergies Allergy/AdvReac Type Severity Reaction Status Date / Time No Known Allergies Allergy Verified 06/24/20 08:28 Home Medications Home Medications Medication Instructions Recorded Confirmed Type losartan 100 mg PO QAM 06/24/20 06/24/20 History turmeric 400 mg PO QAM 06/24/20 06/24/20 History Past Med/Surg History Medical History Acid reflux diet controlled BPH (benign prostatic hyperplasia) History of DVT (deep vein thrombosis) 3 years ago -- LLE following travel - treated with AC x 3 mo HTN (hypertension) Obesity Osteoarthritis Surgical History H/O Achilles tendon repair x 4 H/O elbow surgery Rt x 4 H/O shoulder surgery Rt History of colonoscopy History of esophagogastroduodenoscopy (EGD) History of transurethral resection of prostate Family History Aunt Colorectal cancer Father Diabetes Lung cancer Other No family history of adverse response to anesthesia Social History Smoking Status: Never smoker Second Hand Exposure: No; Do You Dip or Chew Tobacco: No; Hx Alcohol Use: Yes Alcohol type: beer, wine and hard liquor Hx Substance Use: No Preferred Language: Faroese Communication Ability: Effective Manager French Required: No Beliefs That Will Affect Care: None marital status: Current Living Situation: Spouse Feels Safe at Home: Yes Safety Concerns: Feels Safe At This Time Review of Systems All systems reviewed & are unremarkable except as noted in Subjective Physical Exam Physical Exam: Physical Exam: (relevant to the procedure, including heart and lung evaluation) General: Alert and oriented x3 with proper grooming and hygiene Eyes: Pupils are equal and react to light with accommodation. Extraocular movements are intact Throat: Deferred due to COVID-19 precautions Cardiac: Regular rate and rhythm with no murmurs or gallops appreciated Lungs: To auscultation throughout with no wheezing, rales or rhonchi Abdomen: Mildly obese, nondistended, nontender with normal active bowel sounds Extremities: Right hip exam shows the patient to have significant stiffness in his hip. He is unable to get down to be able to easily put on socks and shoes. Flexion is to 115 degrees. External rotation is markedly limited at 30 degrees and internal rotation is 5 degrees. Neuro: Cranial nerves II through XII are intact with no motor or sensory deficit Skin: Normal in appearance with no open skin areas or discharge Results & Data ([facility]) Laboratory Results 07/02/20 07/02/20 07/02/20 Range/Units 09:44 09:44 09:44 WBC (4.8-10.8) K/uL RBC (4.7-6.1) M/uL Hgb (14.0-18.0) g/dL Hct (42-52) % MCV (80-100) fL MCH (25-34) pg MCHC (32-36) g/dL RDW Std Deviation (36.4-46.3) fL RDW Coeff of Maris (11.5-14.5) % Plt Count (130-400) K/uL MPV (7.4-10.4) fL Immature Gran % (Auto) % Neut % (Auto) % Lymph % (Auto) % [place] % (Auto) % Eos % (Auto) % Baso % (Auto) % Neut # (Auto) (1.4-6.5) K/uL Lymph # (Auto) (1.2-3.4) K/uL [place] # (Auto) (0.11-0.59) K/uL Eos # (Auto) (0-0.5) K/uL Baso # (Auto) (0-0.2) K/uL Immature Gran # (Auto) (0.00-0.02) K/uL PT (9.0-12.0) Seconds INR (0.9-1.1) Sodium (136-145) mmol/L Potassium (3.5-5.1) mmol/L Chloride (98-107) mmol/L Carbon Dioxide (21-32) mmol/L Anion Gap (3-11) BUN (7-18) mg/dl Creatinine (0.6-1.4) mg/dl Est Cr Clr Drug Dosing ml/min Est GFR ( Amer) Est GFR (Non-Af Amer) BUN/Creatinine Ratio (10-20) Glucose (70-99) mg/dl Estimat Average Glucose 114 mg/dl Hemoglobin A1c 5.6 (4.5-5.6) % Calcium (8.5-10.1) mg/dl Urine Color Yellow Urine Appearance Clear (Clear) Urine pH 6.0 (4.5-7.5) Ur Specific [place] 1.028 (1.000-1.030) Urine Protein Negative (Negative) Urine Glucose (UA) Negative (Negative) Urine Ketones Trace H (Negative) Urine Blood Negative (Negative) Urine Nitrite Negative (Negative) Urine Bilirubin Negative (Negative) Urine Urobilinogen Negative (Negative) Ur Leukocyte Esterase Negative (Negative) Nasal Screen MRSA (PCR) Negative (Negative) Blood Type Antibody Screen 07/02/20 07/02/20 07/02/20 Range/Units 09:44 09:44 09:44 WBC 7.94 (4.8-10.8) K/uL RBC 4.73 (4.7-6.1) M/uL Hgb 14.0 (14.0-18.0) g/dL Hct 41.8 L (42-52) % MCV 88.4 (80-100) fL MCH 29.6 (25-34) pg MCHC 33.5 (32-36) g/dL RDW Std Deviation 44.5 (36.4-46.3) fL RDW Coeff of Maris 13.7 (11.5-14.5) % Plt Count 238 (130-400) K/uL MPV 9.7 (7.4-10.4) fL Immature Gran % (Auto) 0.3 % Neut % (Auto) 73.1 % Lymph % (Auto) 13.2 % [place] % (Auto) 12.3 % Eos % (Auto) 0.8 % Baso % (Auto) 0.3 % Neut # (Auto) 5.81 (1.4-6.5) K/uL Lymph # (Auto) 1.05 L (1.2-3.4) K/uL [place] # (Auto) 0.98 H (0.11-0.59) K/uL Eos # (Auto) 0.06 (0-0.5) K/uL Baso # (Auto) 0.02 (0-0.2) K/uL Immature Gran # (Auto) 0.02 (0.00-0.02) K/uL PT 10.6 (9.0-12.0) Seconds INR 1.0 (0.9-1.1) Sodium 141 (136-145) mmol/L Potassium 3.9 (3.5-5.1) mmol/L Chloride 109 H (98-107) mmol/L Carbon Dioxide 29 (21-32) mmol/L Anion Gap 3.0 (3-11) BUN 18 (7-18) mg/dl Creatinine 1.15 (0.6-1.4) mg/dl Est Cr Clr Drug Dosing 85.9 ml/min Est GFR ( Amer) 82.0 Est GFR (Non-Af Amer) 70.7 BUN/Creatinine Ratio 15.8 (10-20) Glucose 99 (70-99) mg/dl Estimat Average Glucose mg/dl Hemoglobin A1c (4.5-5.6) % Calcium 9.1 (8.5-10.1) mg/dl Urine Color Urine Appearance (Clear) Urine pH (4.5-7.5) Ur Specific [place] (1.000-1.030) Urine Protein (Negative) Urine Glucose (UA) (Negative) Urine Ketones (Negative) Urine Blood (Negative) Urine Nitrite (Negative) Urine Bilirubin (Negative) Urine Urobilinogen (Negative) Ur Leukocyte Esterase (Negative) Nasal Screen MRSA (PCR) (Negative) Blood Type Antibody Screen 07/02/20 Range/Units 09:44 WBC (4.8-10.8) K/uL RBC (4.7-6.1) M/uL Hgb (14.0-18.0) g/dL Hct (42-52) % MCV (80-100) fL MCH (25-34) pg MCHC (32-36) g/dL RDW Std Deviation (36.4-46.3) fL RDW Coeff of Maris (11.5-14.5) % Plt Count (130-400) K/uL MPV (7.4-10.4) fL Immature Gran % (Auto) % Neut % (Auto) % Lymph % (Auto) % [place] % (Auto) % Eos % (Auto) % Baso % (Auto) % Neut # (Auto) (1.4-6.5) K/uL Lymph # (Auto) (1.2-3.4) K/uL [place] # (Auto) (0.11-0.59) K/uL Eos # (Auto) (0-0.5) K/uL Baso # (Auto) (0-0.2) K/uL Immature Gran # (Auto) (0.00-0.02) K/uL PT (9.0-12.0) Seconds INR (0.9-1.1) Sodium (136-145) mmol/L Potassium (3.5-5.1) mmol/L Chloride (98-107) mmol/L Carbon Dioxide (21-32) mmol/L Anion Gap (3-11) BUN (7-18) mg/dl Creatinine (0.6-1.4) mg/dl Est Cr Clr Drug Dosing ml/min Est GFR ( Amer) Est GFR (Non-Af Amer) BUN/Creatinine Ratio (10-20) Glucose (70-99) mg/dl Estimat Average Glucose mg/dl Hemoglobin A1c (4.5-5.6) % Calcium (8.5-10.1) mg/dl Urine Color Urine Appearance (Clear) Urine pH (4.5-7.5) Ur Specific [place] (1.000-1.030) Urine Protein (Negative) Urine Glucose (UA) (Negative) Urine Ketones (Negative) Urine Blood (Negative) Urine Nitrite (Negative) Urine Bilirubin (Negative) Urine Urobilinogen (Negative) Ur Leukocyte Esterase (Negative) Nasal Screen MRSA (PCR) (Negative) Blood Type B Positive Antibody Screen NEGATIVE Diagnostic Findings Studies (relevant to the procedure): X-rays include a standing AP pelvis, false profile view, and cross-table lateral of the right hip. These are compared with his prior films done 6 months ago. There has been some interval narrowing of t he superolateral joint space on the AP pelvis film. He has [id number] arthritis seen anteriorly on the false profile view. His marginal osteophytes are overall unchanged, but are quite significant. Fortunately, his left hip looks okay.
[~2020-07-24 07:02] MED LIST changes: +ACETAMINOPHEN 500 MG TAB PO SCH; +BUPIVACAINE 0.5 % 5 MG/1 ML PF 10ML VIAL ONE; +CEFAZOLIN 2000MG 2,000 MG/15 ML SYR IV SCH; +CeleBREX 200 MG CAP PO SCH; +FAMOTIDINE 20 MG TAB PO SCH; -FLM4 PO; +LR 500ML BOLUS, THEN 15ML/HR IV SCH; +LR 60ML/HR IV SCH; -LSN40 PO; +METOCLOPRAMIDE HCL 10 MG TABLET PO SCH; -PANT40TA PO; +ROPIVACAINE 0.5% HCL/PF 150 MG, BUPIVACAINE 0.5% MPF 30 ML, EPINEPHrine 0.15 MG, Ketoro... INFIL SCH; +TRAMADOL HCL 50 MG TABLET PO SCH; +TRANEXAMIC ACID 1,000 MG **IV Intra-op IV SCH; +TRANEXAMIC ACID 1,000 MG **IV Pre-op IV SCH; -VITBC PO; +dexAMETHasone 4 MG TAB PO SCH
[2020-07-24] MEDS ORDERED: fentaNYL citrate 100 MCG/2 ML VIAL ONE (08:12)
[2020-07-24] MEDS ORDERED: PROPOFOL IV EMULSION 10 MG/ML 20 ML VIAL IV ONE ×3 (08:12→11:05)
[2020-07-24] MEDS ORDERED: ONDANSETRON INJ 2 MG/ML 2 ML VIAL ONE (08:12)
[2020-07-24] MEDS ORDERED: MIDAZOLAM HCL 1 MG/ML 2ML VIAL ONE ×2 (08:12→09:47)
[2020-07-24] MEDS ORDERED: DEXAMETHASONE SOD INJ 4 MG/ML VIAL ONE (08:12)
[2020-07-24] MEDS ORDERED: LIDOCAINE HCL 2% 2 ML VIAL/AMP(20MG/ML) INFIL ONE (08:12)
[2020-07-24] MEDS ORDERED: HYDROmorphone INJ 2 MG/ML SYR/VIAL IV PRN (08:37)
[2020-07-24] MEDS ORDERED: ePHEDrine sulfate 50 MG/ML AMP IV PRN (08:37)
[2020-07-24] MEDS ORDERED: PROMETHAZINE HCL 12.5 MG in SODIUM CHLORIDE 0.9% 50 ML IV PRN (08:37)
[2020-07-24] MEDS ORDERED: fentaNYL citrate 100 MCG/2 ML VIAL IV PRN (08:37)
[2020-07-24] MEDS ORDERED: ONDANSETRON INJ 2 MG/ML 2 ML VIAL IV PRN ×2 (08:37→11:40)
[2020-07-24] MEDS ORDERED: ATROPINE SULFATE 0.1 MG/ML 10ML SYR IV PRN (08:37)
--- NOTE | 2020-07-24 09:08 | History & Physical Bridge Note ---
Date of Service July 24, 2020 History & Physical Bridge Note I have examined the patient, reviewed the History & Physical and in the interval since the performance of the History & Physical I have noted the following changes of clinical significance: no changes noted
[2020-07-24] MEDS ORDERED: ORTHO JOINT ANESTHETIC ONE (09:14)
[2020-07-24] MEDS ORDERED: TRANEXAMIC ACID 1,000 MG x 1 **For Topical Use TOP SCH (09:30)
[2020-07-24] MEDS ORDERED: Nursing to Pharmacy Communication SCH (09:45)
[2020-07-24] MEDS ORDERED: ePHEDrine sulfate 50 MG/ML SYR ONE (11:05)
--- NOTE | 2020-07-24 11:23 | Operative Report ---
Post Operative Report Pre & Post Diagnosis Operation Date: 07/24/20 09:20 Pre-Op Diagnosis: Right Hip Arthritis Post-Op Diagnosis: Right Hip Arthritis I identified the patient and participated in the time-out.: Yes Procedure Operation Date: 07/24/20 09:20 Actual Procedures p Right Total Hip Arthroplasty(Right) - Marcos David MD Surgeon Marcos David MD School Fundraising Director Yoly Light MD, OLEG Proctor PA-C and JP Christian Estimated Blood Loss 100 Findings Consistent with Post-Op Diagnosis Specimens Femoral head Anesthesia Type Spinal MAC Complications none Disposition Accompanied Patient To Recovery: No Disposition: Recovery Room Indications 55-year-old male with right hip pain refractory to conservative management. X- rays demonstrate [id number] arthritis. I had a long discussion with him about the risks and benefits of surgery, alternatives to surgery, and expected outcomes. After reviewing all these elected to proceed with surgery. All questions were answered. Informed consent was signed. Description of Procedure Patient was identified in the preoperative holding area and the surgical site, right hip, was marked. A spinal anesthetic was placed, then the patient was brought back to the main operating room, placed in the operating table and moved into the lateral decubitus position. Axillary roll was placed. All bony pr ominences were padded. Perioperative antibiotics was administered. Operative extremity was prepped and draped in the normal sterile fashion. Prior to incision a multidisciplinary timeout was called. All in the room were in agreement. We began by making an incision for a posterior approach to the hip. We dissected down through subcutaneous tissues to the level of the fascia. The fascia was incised in line with the incision. Charnley bow was placed. The trochanteric bursa was excised. The piriformis and short external rotators were dissected off the posterior aspect of the hip. A box cut was made in the capsule. The femoral head was dislocated. The femoral neck cut was made at our preoperative template. The acetabulum was then exposed. The labrum was sharply excised. Contents of the cotyloid fossa were removed with electrocautery. We then began reaming at a size 8 mm less than our preoperative template. We reamed up by 1 [address] the way up to a size 58 mm cup. This gave us good bleeding cancellus bone circumferentially. The acetabulum was then irrigated out and dried. The real [place] Gription cup was then impacted down into position with 45 degrees of lateral opening and 25 degrees of anteversion. A single cancellous bone screw was placed up into the ilium. Excellent fixation was obtained. An Altrx polyethylene liner for a 36 mm femoral head was then impacted into the shell. The locking mechanism was checked to ensure that it had engaged which it had. Next we turned our attention to the femur. The lateral neck was removed with a box osteotome. Intramedullary guide was used followed by the lateralizing reamer. We then reamed up to a size 7 [place] stem. We then broached all the way up to a size 7. We began trialing with a high offset neck and a +1.5 head. Hip was reduced. Leg lengths were symmetric. The hip was stable in extension and external rotation, and stable in the sleeper position. At 90 degrees of hip flexion the hip could be internally rotated 55 degrees before levering out of the cup. I was very happy with the stability exam. Therefore the hip was dislocated and the femoral trial was removed. The femoral canal was irrigated and dried. The real size 7 high offset [place] femoral stem was opened up. This was impacted down into position. It sat at the same level as the femoral trial. Therefore the 36 mm ceramic femoral head with a 1.5 mm offset was opened up and gently impacted down onto the trunnion. The hip was atraumatically reduced. 1 gram of IV tranexamic acid diluted in 100 cc of normal saline was then used to lavage the wound and allowed to sit for 3 minutes. The wound was irrigated out with sterile Betadine solution. The periarticular injection cocktail was then placed. The short external rotators, piriformis, and posterior capsule were repaired through drill holes in the greater trochanter using #2 Vicryl. The fascia was run with a looped #1 PDS. The subcutaneous layer was closed with #1 PDS. The dermal layer was closed with 2-0 Vicryl. Zip line was used for the skin followed by a Silverlon dressing. A compressive dressing was then placed. The patient was then rolled supine. Leg lengths were rechecked and were symmetric. An abduction pillow was placed. Sedation was lifted and the patient was transferred to recovery room in stable condition. Summary of implants: [employer] [place] Gription Acetabular Shell Sector Cup, 58 mm outer diameter [place] Cancellous bone screw, 6.5 x 35 mm [place] Altrx Polyethylene Acetabular Liner, Neutral, with a 36 mm inner diamet er DePuy [place] Femoral stem with [place], 12/14 taper, size 6 high 36 mm ceramic femoral head with +1.5 offset Postoperative course: Patient will be admitted to the hospital from the recovery room. Patient will be weightbearing as tolerated with posterior hip precautions. Aspirin for DVT prophylaxis I attest to the content of the Intraoperative Record and any orders documented therein. Any exceptions are noted below.
--- NOTE | 2020-07-24 11:38 | Operative Report ---
Post Operative Report Pre & Post Diagnosis Operation Date: 07/24/20 09:20 Pre-Op Diagnosis: Right Hip Arthritis Post-Op Diagnosis: Right Hip Arthritis I identified the patient and participated in the time-out.: Yes Procedure Operation Date: 07/24/20 09:20 Actual Procedures p Right Total Hip Arthroplasty(Right) - Marcos David MD Surgeon Marcos David MD Hydraulic Corrugating Machine Operator Yoly Light MD, OLEG Proctor PA-C and Vamsi Crook MS4 Estimated Blood Loss 100 Findings Consistent with Post-Op Diagnosis Specimens Femoral head Anesthesia Type Spinal MAC Complications none None Disposition Accompanied Patient To Recovery: Yes Disposition: Recovery Room Indications Severe right hip osteoarthritis Description of Procedure As per Dr. David note I assisted in prepping and draping certain parts of the procedure instrument handling and wound closure I attest to the content of the Intraoperative Record and any orders documented therein. Any exceptions are noted below.
[2020-07-24] MEDS ORDERED: ALUMINUM/MAGNESIUM SUSP 30 ML UDC PO PRN (11:40)
[2020-07-24] MEDS ORDERED: bisacodyL 10 MG SUPP PR PRN (11:40)
[2020-07-24] MEDS ORDERED: METOCLOPRAMIDE HCL INJ 5 MG/ML 2 ML VIAL IV PRN (11:40)
[2020-07-24] MEDS ORDERED: NALOXONE HCL 0.4 MG/1 ML VIAL/CARP IV PRN (11:40)
[2020-07-24] MEDS ORDERED: DiphenhydrAMINE HCL 50 MG/ML VIAL IV PRN (11:40)
[2020-07-24] MEDS ORDERED: OXYCODONE HCL IR 5 MG TAB (IMMEDIATE RELEASE) PO PRN (11:40)
[2020-07-24] MEDS ORDERED: MAGNESIUM HYDROXIDE SUSP 30 ML UDC PO PRN (11:40)
--- NOTE | 2020-07-24 11:40 | Operative Report ---
Post Operative Report Pre & Post Diagnosis Operation Date: 07/24/20 09:20 Pre-Op Diagnosis: Right Hip Arthritis Post-Op Diagnosis: Right Hip Arthritis I identified the patient and participated in the time-out.: Yes Procedure Operation Date: 07/24/20 09:20 Actual Procedures p Right Total Hip Arthroplasty(Right) - Marcos David MD Surgeon Marcos David MD Reefer Engineer Yoly Light MD, OLEG Proctor PA-C and Vamsi Crook MS4 Estimated Blood Loss 100 Findings Consistent with Post-Op Diagnosis Specimens femoral head Complications none Disposition Accompanied Patient To Recovery: Yes Disposition: Recovery Room Description of Procedure I was present during the entire procedure assisting with positioning, prepping, draping, retraction, wound closure and dressing application. Fellow present and I served as an extra set of hands. Please see Dr. David procedure note for specifics. I attest to the content of the Intraoperative Record and any orders documented therein. Any exceptions are noted below.
[2020-07-24] MEDS ORDERED: TAMSULOSIN HCL 0.4 MG CAP PO PRN (11:42)
[2020-07-24] MEDS ORDERED: ACETAMINOPHEN 500 MG TAB PO PRN (11:44)
--- NOTE | 2020-07-24 12:22 | XRay Report ---
AP PELVIS, CROSSTABLE LATERAL RIGHT HIP History: Right total hip arthroplasty. Degenerative arthritis. Postop. FINDINGS: The patient is status post a right total hip arthroplasty. The hardware is intact. No fract ures. There is anterior dislocation of the femoral head prosthesis in relation to the acetabular cup. This is only seen on the lateral view. Follow-up imaging of the right hip following discussion with the patient's surgeon demonstrates normal anatomic alignment status post reduction. IMPRESSION: Right total hip arthroplasty. Anterior dislocation of the femoral head prosthesis in relation to the acetabular cup. These findings were discussed with Dr. David at 12:15 PM on 07/24/2020. However, follow-up imaging of the right hip following discussion with the patient's surgeon demonstrates suzy l anatomic alignment status post reduction. ACT 112: Negative or not required by law. Electronically signed by: Ritesh Sims M.D. 07/24/2020 12:21 PM
--- NOTE | 2020-07-24 12:30 | Anesthesiology Progress Note ---
Date of Service July 24, 2020 Anesthesia Post Procedure Vital Signs Vital Signs: Temp Pulse Resp BP BP Pulse Ox 07/24/20 12:25 36.7 C 74 16 117/74 93 07/24/20 12:15 75 16 122/72 93 07/24/20 12:05 73 16 117/73 93 07/24/20 11:55 81 16 109/76 93 07/24/20 11:45 78 20 118/78 94 07/24/20 11:39 36.7 C 81 20 121/77 95 07/24/20 08:30 36.8 C 66 18 167/103 H 99 07/24/20 07:19 37.3 C 75 16 157/90 H 97 Pain Intensity Right Hip: Pain Intensity: 0 Transfer of Care Handoff Completed per policy Notes Mental Status: alert / awake / arousable and participated in evaluation Patient Amnestic to Procedure: Yes Nausea / Vomiting: adequately controlled Pain: adequately controlled Airway Patency, RR, SpO2: stable & adequate BP & HR: stable & adequate Hydration State: stable & adequate Anesthetic Complications: no major complications apparent and Pt Satisfied with anesthetic care
--- NOTE | 2020-07-24 13:07 | Orthopedic Progress Note ---
Date of Service July 24, 2020 Subjective I was called by the x-ray tech when patient was in PACU for anterior subluxation of patient's hip. I immediately came to the PACU to evaluate him. He had no pain, as his spinal anesthetic was still in place. There was no palpable prominence in the groin. His right leg was externally rotated about 50 degrees, versus his left which was 25 degrees. I looked at his x-ray, which showed leg lengths to be fairly symmetric, perhaps 1-2 mm shorter on the right than left. Acetabular component was in good position, without excessive anteversion. I then pulled gentle traction on his leg and internally rotated it. There was no clunk, suggesting the component was subluxated, not dislocated. Cross table lateral X-ray was repeated with the leg resting (not held) in 25 degrees of external rotation. The prosthesis was now perfectly reduced. I discussed the x-rays with the radiologist. My impression is that the subluxation was due to patient positioning and the fact that his spinal is still in effect so he has no muscle tone compressing the femoral head into the acetabulum. I spoke with the patient about the x-ray finding and our plan, which will be to monitor him closely after his spinal wears off, and take care to ensure his right leg is not excessively externally rotated when he is supine. Results & Data ([facility]) Vital Signs (Past 12 Hours) Vital Signs Temp Pulse Resp BP BP Pulse Ox 07/24/20 12:35 65 14 111/63 94 07/24/20 12:25 36.7 C 74 16 117/74 93 07/24/20 12:15 75 16 122/72 93 07/24/20 12:05 73 16 117/73 93 07/24/20 11:55 81 16 109/76 93 07/24/20 11:45 78 20 118/78 94 07/24/20 11:39 36.7 C 81 20 121/77 95 07/24/20 08:30 36.8 C 66 18 167/103 H 99 07/24/20 07:19 37.3 C 75 16 157/90 H 97
[2020-07-24] MEDS: ACETAMINOPHEN 500 MG TAB PO SCH ×2 (13:21→21:01)
[2020-07-24] MEDS: SODIUM CHLORIDE 0.9% 1000ML 1,000 ML IV SCH ×2 (13:41→21:00)
[2020-07-24] MEDS: Scopolamine CHECK PATCH PLACEMENT SCH ×2 (15:28→23:47)
[2020-07-24] MEDS: KETOROLAC TROMETHAMINE 15 MG/ML VIAL IV SCH ×2 (17:17→23:47)
[2020-07-24] MEDS: CEFAZOLIN 2000MG 2,000 MG/15 ML SYR IV SCH (17:18)
--- NOTE | 2020-07-24 20:35 | XRay Report ---
XR hip RT 2V w pelvis CLINICAL HISTORY: pt feel like hip clicks while walking. COMPARISON: Right hip radiographs performed earlier today and July 02, 2020. FINDINGS: Alignment of the total right hip arthroplasty is anatomic. The femoral component is seated within the acetabular cup. There is an acetabular screw. There are no unexpected radiopaque foreign bodies. There is no periprosthetic fracture. IMPRESSION: Expected findings following total right hip arthroplasty. Anatomic alignment. No peripros thetic fracture. ACT 112: Negative or not required by law. Electronically signed by: Jose Garcia M.D. 07/24/2020 8:33 PM
[2020-07-24] MEDS: DOCUSATE SODIUM 100 MG CAP PO SCH (20:59)
[2020-07-24] MEDS ORDERED: SENNA 8.6 MG TAB PO SCH (21:00)
[2020-07-25] MEDS: CEFAZOLIN 2000MG 2,000 MG/15 ML SYR IV SCH (01:17)
[2020-07-25] MEDS: KETOROLAC TROMETHAMINE 15 MG/ML VIAL IV SCH (05:24)
[2020-07-25] MEDS: ACETAMINOPHEN 500 MG TAB PO SCH (05:24)
[2020-07-25 06:05] LABS: Hematocrit (blood only) 35.6 % (42-52); Hemoglobin 11.6 g/dL (14.0-18.0); Immature Granulocytes # (auto) 0.05 K/uL (0.00-0.02); Immature Granulocytes % (auto) 0.3 %; Lymphocytes # (auto) 0.69 K/uL (1.2-3.4); Mean Corpuscular Hemoglobin 28.9 pg (25-34); Mean Corpuscular Hgb Conc 32.6 g/dL (32-36); Mean Corpuscular Volume 88.8 fL (80-100); Mean Platelet Volume 9.7 fL (7.4-10.4); Monocytes # (auto) 1.27 K/uL (0.11-0.59); Monocytes % (auto) 7.4 %; Neutrophils # (auto) 15.16 K/uL (1.4-6.5); Neutrophils % (auto) 88.3 %; Platelet Count 251 K/uL (130-400); RDW Coefficient of Variation 13.5 % (11.5-14.5); RDW Standard Deviation 44.4 fL (36.4-46.3); Red Blood Count 4.01 M/uL (4.7-6.1); White Blood Count 17.17 K/uL (4.8-10.8)
[2020-07-25 06:21] LABS: BUN Creatinine Ratio 17.9 (10-20); Calcium 8.6 mg/dl (8.5-10.1); Creatinine Clr Calc Pharmacy 82.3 ml/min; Est GFR (African American) 78.7; Est GFR (Non-African American) 67.9; Potassium 4.3 mmol/L (3.5-5.1)
--- NOTE | 2020-07-25 07:47 | Orthopedic Progress Note ---
Date of Service July 25, 2020 Assessment & Plan (1) Status post total hip replacement, right: Discussed with patient that his right leg is a little shorter than the left now, so he may feel like the hip is a little loose initially, but this sensation should decrease and likely go away with time. PT/OT this morning May discharge home if passes PT Xarelto for DVT prophylaxis due to personal history of DVT Admission and Anticipated Discharge Date Admission Date: July 24, 2020 Subjective Patient reports minimal pain in his right hip this morning. He felt a small cl unk when getting out of bed the first time yesterday, but the second time he was fine. No numbness/tingling. Denies f/c/cp/sob. Physical Exam Physical Exam: Resting comfortably in bed in NAD. Rechecked leg lengths and he is a couple millimeters shorter on the right. Compressive dressing removed. Silverlon is intact with some blood showing through the window. NVI. Results & Data ([facility]) Vital Signs (Past 12 Hours) Vital Signs Temp Pulse Resp BP BP Pulse Ox 07/25/20 07:40 36.5 C 52 L 16 119/77 97 07/25/20 04:03 36.8 C 60 14 101/62 95 07/24/20 23:53 98 H 132/77 07/24/20 23:40 37.1 C 57 L 14 95/57 L 93 07/24/20 21:09 36.8 C 58 L 16 104/67 94
[2020-07-25] MEDS ORDERED: dexAMETHasone 4 MG TAB PO SCH (08:00)
[2020-07-25] MEDS: DOCUSATE SODIUM 100 MG CAP PO SCH (08:33)
[2020-07-25] MEDS: Scopolamine CHECK PATCH PLACEMENT SCH (08:34)
[2020-07-25] MEDS ORDERED: NON-FORMULARY MEDICATION (Turmeric 400 MG) PO SCH (09:00)
[2020-07-25] MEDS ORDERED: LOSARTAN POTASSIUM 50 MG TAB PO SCH (09:00)
[2020-07-25] MEDS ORDERED: MULTIVITAMIN TAB PO SCH (09:00)
[2020-07-25] MEDS ORDERED: RIVAROXABAN 10 MG TABLET PO SCH (09:00)
--- NOTE | 2020-07-25 11:02 | Orthopedic Progress Note ---
Date of Service July 25, 2020 Assessment & Plan (1) Status post total hip replacement, right: Total hip precautions WBAT with walker assistance PT/OT Ice with EZ wrap Dressing changed. Keep new on in place. DVT prophy with TEDs and Xarelto Pain control with PO meds Plans on discharge home today with in home PT with [facility] Follow up at [facility] as previously scheduled With questions call: . Admission and Anticipated Discharge Date Admission Date: July 24, 2020 Subjective This 55 yo M is day 1 s/p Right Total Hip Arthroplasty. Patient had incidence of subluxation with getting post op x-rays in the PACU yesterday that was manipulated by Dr. David yesterday. He also stated that last night while getting up to use the bathroom he felt a "clunk," he sat back down then stood up again without issue. He complains of mild pain over IT band that is adequately controlled with PO meds. He has yet to do PT/OT this AM. He denies CP, SOB, nausea, vomiting, fever, chills, sweats, lethargy or numbness/tingling in the Right LE. If he does well with PT, he states that he will be ready for discharge. Review of Systems Review of Systems: All systems reviewed & are unremarkable except as noted in Subjective Physical Exam Physical Exam: Right Hip: Silverlon dressing saturated and soggy. Applied new one. Unable to perform active SLRT but can actively dorsi/plantar flex his foot. Quad strength 1/5. Minimal pain with very light passive internal rotation, but no pain with passive log roll or external rotation. NV intact. Results & Data ([facility]) Vital Signs (Past 12 Hours) Vital Signs Temp Pulse Resp BP BP Pulse Ox 07/25/20 07:40 36.5 C 52 L 16 119/77 97 07/25/20 04:03 36.8 C 60 14 101/62 95 07/24/20 23:53 98 H 132/77 07/24/20 23:40 37.1 C 57 L 14 95/57 L 93 Laboratory Results 07/25/20 07/25/20 Range/Units 05:20 05:20 WBC 17.17 H (4.8-10.8) K/uL RBC 4.01 L (4.7-6.1) M/uL Hgb 11.6 L (14.0-18.0) g/dL Hct 35.6 L (42-52) % MCV 88.8 (80-100) fL MCH 28.9 (25-34) pg MCHC 32.6 (32-36) g/dL RDW Std Deviation 44.4 (36.4-46.3) fL RDW Coeff of Maris 13.5 (11.5-14.5) % Plt Count 251 (130-400) K/uL MPV 9.7 (7.4-10.4) fL Immature Gran % (Auto) 0.3 % Neut % (Auto) 88.3 % Lymph % (Auto) 4.0 % Ransom % (Auto) 7.4 % Eos % (Auto) 0.0 % Baso % (Auto) 0.0 % Neut # (Auto) 15.16 H (1.4-6.5) K/uL Lymph # (Auto) 0.69 L (1.2-3.4) K/uL Ransom # (Auto) 1.27 H (0.11-0.59) K/uL Eos # (Auto) 0.00 (0-0.5) K/uL Baso # (Auto) 0.00 (0-0.2) K/uL Immature Gran # (Auto) 0.05 H (0.00-0.02) K/uL Sodium 140 (136-145) mmol/L Potassium 4.3 (3.5-5.1) mmol/L Chloride 110 H (98-107) mmol/L Carbon Dioxide 24 (21-32) mmol/L Anion Gap 6.0 (3-11) BUN 21 H (7-18) mg/dl Creatinine 1.19 (0.6-1.4) mg/dl Est Cr Clr Drug Dosing 82.3 ml/min Est GFR ( Amer) 78.7 Est GFR (Non-Af Amer) 67.9 BUN/Creatinine Ratio 17.9 (10-20) Glucose 126 H (70-99) mg/dl Calcium 8.6 (8.5-10.1) mg/dl
--- NOTE | 2020-07-25 11:21 | Discharge Summary ---
Date of Service July 25, 2020 Admission HPI Per Admitting Provider History of Present Illness (including history relevant to procedure): This 55-year-old male presents the clinic today for his preoperative history and physical. 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 Patient has failed conservative management with steroid injections, the use of nonsteroidal agents physical therapy and his normal workout regimen has been affected. Patient states that he always has some pain in the hip. He has difficulty putting on his socks and taking pants on and off. He is had to give up jogging and has had progression on his normal workout regimen. He is able to do the elliptical for short periods of time. He has difficulty sleeping at night particularly if he tries to lie on the right side. Feels the pain in the groin and the lateral aspect of the hip. No numbness or tingling. Past Medical History: Problems: Preop testing Low back pain Impaired fasting glucose Osteoarthritis of right hip Hip pain, right Elevated PSA Chronic prostatitis ITB syndrome Hip pain, right Snores Weight disorder GERD (gastroesophageal reflux disease) ROSACEA History of viral warts Sebaceous hyperplasia Hyperplasia of Prostate, Unspecified, without Urinary Obstruction and Other Lower Urinary Symptoms (Luts) Elevated Blood Pressure Reading without Diagnosis of Hypertension Backache, Unspecified Procedure History Procedure Procedure Date Comments knee; Venous doppler ultrasonography 04/10/2018 - No evidence of acute occlusive deep venous thrombus. Nonocclusive echogenic thrombus of the mid femoral vein with extension into the popliteal vein suggests chronic etiology. - Uchanged appearance of nonocclusive deep venous thrombosis in the left popliteal vein which extends into the calf as compared to 09-12-17, this is age determinant and likely chronic. Remaining deep veins of the left lower extremity are clear. X-ray of tibia/fibula normal 06/22/2017 - 1. No bony abnormalities identified2. Nonspecific soft tissue nodularity involving the medial soft tissues. Colonoscopy 08/15/2015 - Repeat 10 years - Niru Liriano Cas small mouthed diverticula were found in the sigmoid colon. Non bleeding internal hemorrhoids were found during retrofleion. The hemorrhoids were small. Esophagogastrectomy 01/05/2011 Allergies and Sensitivities: NKA Current Home Meds: (Last Updated 07/02 08:01) (losartan 100 mg oral tablet) TAKE 1 TABLET BY MOUTH ONCE DAILY Initial Wt: 07/02 99.0 kg 218 lb Admission Exam Per Admitting Provider Physical Exam: (relevant to the procedure, including heart and lung evaluation) General: Alert and oriented x3 with proper grooming and hygiene Eyes: Pupils are equal and react to light with accommodation. Extraocular movements are intact Throat: Deferred due to COVID-19 precautions Cardiac: Regular rate and rhythm with no murmurs or gallops appreciated Lungs: To auscultation throughout with no wheezing, rales or rhonchi Abdomen: Mildly obese, nondistended, nontender with normal active bowel sounds Extremities: Right hip exam shows the patient to have significant stiffness in his hip. He is unable to get down to be able to easily put on socks and shoes. Flexion is to 115 degrees. External rotation is markedly limited at 30 degrees and internal rotation is 5 degrees. Neuro: Cranial nerves II through XII are intact with no motor or sensory deficit Skin: Normal in appearance with no open skin areas or discharge Principal Diagnosis Right hip osteoarthritis Discharge Exam Right Hip: Silverlon dressing saturated and soggy. Applied new one. Unable to perform active SLRT but can actively dorsi/plantar flex his foot. Quad strength 1/5. Minimal pain with very light passive internal rotation, but no pain with passive log roll or external rotation. NV intact. Discharge Data Allergies Allergy/AdvReac Type Severity Reaction Status Date / Time No Known Allergies Allergy Verified 07/24/20 07:21 Consultations 07/25/20 08:00 Consult Case Management - Discharge Planning Routine Procedures Performed Operation Date: 07/24/20 09:20 Actual Procedures p Right Total Hip Arthroplasty(Right) - Marcos David MD Hospital Course (1) Status post total hip replacement, right: Patient had incidence of subluxation with getting post op x-rays in the PACU yesterday that was manipulated by Dr. David yesterday. He also stated that last night while getting up to use the bathroom he felt a "clunk," he sat back down then stood up again without issue. Patient has had no issues today. He has not yet had PT/OT this AM. Discharge will be pending their eval. He plans on going home today and is set up with [facility] for his post op PT for the first 2 wks. Total hip precautions WBAT with walker assistance PT/OT Ice with EZ wrap Dressing changed. Keep new on in place. DVT prophy with TEDs and Xarelto Pain control with PO meds Plans on discharge home today with in home PT with [facility] Follow up at [facility] as previously scheduled With questions call: . Total Time Total Time Spent Total Time Spent (In Minutes): 25 mins Total Time Includes: Examination of the Patient, Discharge Planning and Medication Reconciliation Discharge Plan Discharge Items Patient Disposition: Home - Home Health Services Reason For Visit: Right Hip Arthritis Discharge Diagnosis: Right Hip Arthritis Activity: As commented below Lifting: None Bathing: Keep incision dry Bathing Comment: May shower tomorrow Sexual Activity: Wait until after follow-up appointment Exercise/Sports: Wait until after follow-up appointment Weightbearing Comment: as tolerated with walker assistance Non-emergency contact: Primary Care Provider Call non-emergency contact if: you have any medication questions, your pain is not controlled, your temperature is above 101.5, your wound has increased dennis inage and your wound pain has increased Follow-up/Referrals: Jeremy Bran [Primary Care Provider] - Diet: Regular Addtl Attending Provider Instructions: Post-operative Instructions Dear Patient and Family/Friends, Before you are discharged from the hospital, it is important to know what to expect when you get home after surgery. To that end, we have created this sheet of discharge instructions which covers many commonly asked questions. Make sure you go through this sheet in its entirety with your nurse before you are d ischarged. Please note that we will go over the specifics of your surgery and recovery when you return for your first post-operative visit. Sincerely, Dr. David Medication 1. Oxycodone 5 mg: take 1-2 tabs by mouth every 4-6 hours as needed for post- operative pain. A prescription for this medication will be sent to your pharmacy. 2. Diclofenac Sodium 75 mg: take 1 tab twice daily for 30 days post operatively. This will also be sent to your pharmacy with 1 refill. 3. Xarelto 10 mg: take 1 tab daily for 21 days post operatively for blood clot prevention. This will be sent to your pharmacy. Then, take Aspirin 81 mg tab twice daily for an additional week after completion of the Xarelto. Please purchase the Aspirin. 4. Extra Strength Tylenol 500 mg: take 2 tabs every 6-8 hour as needed for pain relief for 30 days post operatively. Please purchase. Pain Expect to be in a fair amount of pain after surgery. Remember, our goal is not to eliminate your pain, but to make it tolerable. It is a good idea to stay ahead of your pain by taking the medications you were prescribed once you get home. Typically, the pain starts improving 3-7 days after surgery. You should start weaning off the narcotic pain medication (oxycodone, hydrocodone, hydromorphone, morphine) as soon as your pain improves. Please call our office if your pain is not adequately controlled. Ice Ice your operative site at least 5 times a day for 15-30 minutes at a time. Make sure you have a thin cloth between the ice or cooling unit and your skin to prevent poole bite. This is especially important if you received a nerve block. Continue icing your operative site for the first 5-7 days after surgery, then as needed. Diet/Nausea/Vomiting Start by drinking clear liquids and eating crackers. If you can tolerate this, then you may resume your normal diet. If you feel nauseated or vomit, take Zofran/ondansetron (if prescribed). Please call our office if you have intractable nausea or vomiting, or, if after hours, you may go to the Emergency Room for help. Constipation Constipation is a common side effect of narcotic pain medication. If you have not had a bowel movement within 2 days after surgery, we recommend purchasing an over the counter laxative such as Milk of Magnesia, Dulcolax, or Miralax from a local pharmacy, and taking it as instructed. Call our clinic if any questions. Nerve block The anesthesia team sometimes places a nerve block to help with post-operative pain control. This results in significant numbness and inability to move the extremity. The nerve block usually wears off in 8-12 hours, but sometimes can last up to 24 hours. Please call our office if you are still unable to move your extremity after 24 hours, unless you received a pain pump to take home. Nerve blocks typically wear off quickly, so start taking pain medication as soon as you start feeling soreness near your surgical site. Weight bearing and Range of Motion. Do not bear any weight through your operative extremity immediately after surgery. If you had upper extremity surgery, do not lift anything with that arm. If you are in a knee brace, keep it locked in place until your follow-up. We will discuss your weight bearing, range of motion, and lifting restrictions in detail at your first post-operative appointment. Continuous Passive Motion (CPM) Machine If you were prescribed a CPM machine, it will start after your first post- operative appointment, at which time we will give you instructions on the range of motion settings and duration of treatment Physical therapy You will be given a prescription for physical therapy or occupational therapy at your first post-operative appointment. Typically, patients start therapy within 1 week of surgery Wound care and showering We will inspect your wound at your first post-operative visit, and may do a dressing change at that time. Most patients will be in a water-proof dressing that is removed 14 days after surgery. It is normal to see some dried blood on the dressing. Do not remove your dressing, paper strips or sutures yourself unless you are given permission. Showering is allowed the day after surgery. Do not scrub or remove any dressings. The wound should not be submerged underwater (i.e. in a bathtub or pool) until 4 weeks after surgery ELEAZAR stockings If you were given white stockings, these are to be worn at all times except to shower (on both legs) for the first 2 weeks after surgery. Driving You may not drive while taking narcotic pain medication or while in a cast, splint, sling or brace. You, the patient, need to make the final determination about when you are safe to drive, however, the earliest you may consider driving after surgery is below: Hand/Wrist/Elbow Surgery: 3 days Shoulder Surgery: 2 weeks Hip,/Knee/Ankle Surgery: 4 weeks Fracture repair: 6 weeks Return to Work Your return to work depends on what surgery was done and what type of work you do. Please bring any paperwork your employer needs completed to your first post-operative visit. Also, bring a description of your job duties, as this helps us to understand what risks you may face at work. Travel Avoid long distance travel (greater than 1 hour) in airplanes and cars for the first 6 weeks after surgery. If you must travel, you need to have a Doppler ultrasound done before you travel to rule out a blood clot in your legs. Follow-up You should have a follow-up appointment already scheduled 1-2 days after surgery. If not, please contact our office to make this appointment before you leave the hospital. When to call the office It is normal to have swelling and bruising in the limb that was operated on. This will improve with time. It is also normal to have fevers for the first 2 days after surgery. Reasons you should call your doctor include: Uncontrolled pain; Nausea, vomiting, or constipation that does not improve with medication; Fevers over 101.5, chills, sweats; Drainage or bleeding from the wound; Foul odor; Spreading areas of redness; Any other concerns Pending Studies at Discharge: No Stand-Alone Forms: My [facility] Medications and DC Order Prescriptions: New oxycodone 5 mg tablet 5 mg PO Q6H Qty: 30 RF: 0 Xarelto 10 mg tablet 10 mg PO DAILY 21 Days Qty: 21 RF: 0 diclofenac sodium 75 mg tablet,delayed release (DR/EC) 75 mg PO Q12H Qty: 60 RF: 1 Continued losartan 100 mg Tablet 100 mg PO QAM RF: 0 turmeric 400 mg Capsule 400 mg PO QAM RF: 0 acetaminophen 500 mg Tablet 1,500 mg PO QID PRN (Reason: Pain) RF: 0 Discontinued ibuprofen [Advil] 200 mg Tablet 800 mg PO Q6H PRN (Reason: Pain) RF: 0 Discharge Orders: Discharge Order (Routine); Ordered 07/25/20 Ordered By: Raj Proctor Admission Data Admit Date/Time: 07/24/20 11:40 Attending Provider: Marcos David Admit Provider: Marcos David Primary Care Provider: Jeremy Bran Other Providers: [email or web address]
[2020-07-25] MEDS ORDERED: IBUPROFEN 800 MG TAB PO PRN (18:00)
[2020-07-25] MEDS ORDERED: CeleBREX 200 MG CAP PO SCH (21:00)
== END 2020-07-25 13:07 | disposition home health service (06) ==
LOC: ASU 07:02 → 3E 07:02